=== PATIENT | female | born 1985 | race Caucasian/White ===

== ENCOUNTER 2019-07-10 22:46 | Emergency (ER) | payer OTHER ==
[~2019-07-10] VITALS: Ht 167.6 cm; Wt 91.2 kg
[~2019-07-10 22:46] MED LIST: LOPE-123 PO
[2019-07-10 22:50] VITALS: Ht 167.6 cm; Wt 91.2 kg
[2019-07-10] MEDS ORDERED: LOPERAMIDE 2 MG CAP PO ONE (23:30)
[2019-07-11 00:26] VITALS: BP 128/70; PULSE 86; RESP 17
== END 2019-07-11 00:26 | disposition home or self-care (01) ==
LOC: FTE 22:46
DX: R19.7 Diarrhea, unspecified (principal)
CPT/HCPCS: 99282